=== PATIENT | female | born 1990 | race Caucasian/White ===

== ENCOUNTER 2020-12-18 09:11 | Emergency (ER) | payer OTHER, SELFPAY ==
--- NOTE | 2020-12-18 09:19 | ED.GENADULT ---
HPI - General Adult General Chief complaint: Eye Problems Stated complaint: Swollen Eye Time Seen by Provider: 12/18/20 09:20 Source: patient Mode of arrival: ambulatory Limitations: no limitations History of Present Illness HPI narrative: 30-year-old female patient presents to the [facility] with complaints of left eye pain that started yesterday. Patient states that she woke up yesterday with a little bit of swelling to the left inner canthi of this. Patient states she did have a pimple to the area thought it was just her pimple. Patient states she woke up again this morning with some dry discharge around the inner canthi and does and states that now her upper lid on the left eye is swollen. Denies any vision changes. Denies any itching. Patient denies taking anything for her symptoms. Patient denies wearing contacts or glasses. Patient states she has had some anxiety recently from starting a new job. Related Data Home Medications Medication Instructions Recorded Confirmed hydroxyzine HCl 25 mg PO DAILY 12/18/20 12/18/20 norethindrone (contraceptive) 0.35 mg PO DAILY 12/18/20 12/18/20 Allergies Allergy/AdvReac Type Severity Reaction Status Date / Time No Known Allergies Allergy Unknown Verified 12/18/20 09:13 Review of Systems Review of Systems: Narrative: CONSTITUTIONAL: Denies fever, chills, or sweats. EYES: Denies visual changes, redness, or discharge. Positive left upper lid swelling since yesterday ENT: Denies rhinorrhea, congestion, sore throat, or otalgia. CARDIOVASCULAR: Denies chest pain, palpitations, or edema. RESPIRATORY: Denies cough or dyspnea. GASTROINTESTINAL: Denies abdominal pain, nausea, vomiting, or diarrhea. GENITOURINARY: Denies dysuria or hematuria. SKIN: Denies rash or itching. MUSCULOSKELETAL: Denies back pain, joint pain, or myalgia. NEUROLOGIC: Denies headache, numbness, or weakness. PSYCHIATRIC: Denies anxiety or depression. [facility] Social History Social History Gender identity (if verbalized by the patient): Female Comments At the time of my signature I agree with nursing past medical history, surgical, social, and family history. There is no relevant family history pertinent to the presenting complaint. Exam Narrative: Exam Narrative: GENERAL: Well-appearing, well-nourished, and in no acute distress. HEAD: Normocephalic, atraumatic. EYES: PERRLA and EOM intact without limitation or complaint of pain, no periorbital soft tissue swelling ,no erythema, warmth or tenderness noted, no obvious deformity. Patient has some swelling to the left upper lid along with a notable pimple on the bridge of the nose of the left side with some tenderness noted. No crusting or swelling.no tearing or draining.No photophobia. No nystagmus No FB or lesion on lid eversion. Corneas grossly clear, no obvious FB or hyphens/hypopyon. No injection to sclera. Lids and lashes clear. ENT: Nares clear, no rhinorrhea or epistaxis. Mucous membranes moist. NECK: Supple. No lymphadenopathy CHEST: Clear to auscultation. No respiratory distress. HEART: Regular rate and rhythm. No murmur heard. Normal peripheral pulses. ABDOMEN: Soft, nontender, nondistended, normal active bowel sounds. EXTREMITIES: Normal range of motion. No edema. SKIN: Warm, dry, no rash. NEURO: No focal deficits. Alert and oriented x3. Course Vital Signs Vital signs: Vital Signs Temperature 36.2 C L 12/18/20 09:28 Pulse Rate 91 12/18/20 09:28 Respiratory Rate 18 12/18/20 09:28 Blood Pressure 132/89 12/18/20 09:28 Pulse Oximetry 100 12/18/20 09:28 Temperature 36.2 C L 12/18/20 09:28 Pulse Rate 91 12/18/20 09:28 Respiratory Rate 18 12/18/20 09:28 Blood Pressure 132/89 12/18/20 09:28 Pulse Oximetry 100 12/18/20 09:28 Vital signs reviewed The patient has been informed that they may have pre-hypertension or Hypertension based on a BP reading in the departme
[2020-12-18 09:28] VITALS: BP 132/89; PULSE 91; RESP 18; TEMP 36.2; O2SAT 100
== END 2020-12-18 09:50 | disposition home or self-care (01) ==
PROVIDERS: Emergency Provider Nurse Practitioner Family
DX: H00.024 Hordeolum internum left upper eyelid (principal); F41.9 Anxiety disorder, unspecified
CPT/HCPCS: 99213; A9270; G0463

== ENCOUNTER 2021-10-04 16:36 | Outpatient (CLI) | payer OTHER, SELFPAY ==
--- NOTE | ~2021-10-04 | US_ITS ---
US thyroid INDICATION: Nontoxic goiter TECHNIQUE: Real-time sonographic images of the thyroid gland were obtained. COMPARISON: No prior studies for comparison. FINDINGS: The right thyroid lobe measures 4.2 x 1 x 1 cm. The left thyroid lobe measures 3.4 x 0.9 x 1.9 cm. There is normal echotexture and echogenicity throughout the thyroid gland. No discrete nodul es identified. Normal vascular flow is present. IMPRESSION: 1. Normal thyroid without discrete nodule or abnormal vascularity. Reviewed, dictated and finalized at location A. TEGY ASSOCIATE
== END 2021-10-04 16:37 | disposition home or self-care (01) ==
PROVIDERS: PCP Physician Assistant; Visit Provider Physician Assistant
DX: E04.9 Nontoxic goiter, unspecified (principal)
CPT/HCPCS: 76536

== ENCOUNTER 2024-03-27 18:30 | Inpatient (IN) | payer OTHER, SELFPAY ==
[2024-03-27] VITALS (19 sets, daily range): BP systolic 108–155; BP diastolic 63–102; PULSE 89–103; BMI 35.5
[2024-03-27 19:22] LABS: Basophils Percent Auto 0.1 % (0.2-1.2); Eosinophils Percent Auto 0.5 % (0-4.4); Hematocrit 36.6 % (37.0-47.0); Hemoglobin 12.2 g/dL (12.0-15.0); Immature Granulocyte Absolute 0.02 K/mm3 (0.00-0.031); Immature Granulocyte Percent A 0.3 % (0-0.5); Lymphocytes Absolute Auto 1.68 K/mm3 (0.9-3.2); Lymphocytes Percent Auto 22.1 % (18.3-44.2); Mean Corpuscular HGB Conc 33.3 g/dl (32-36); Mean Corpuscular Hemoglobin 30.9 pg (26-34); Mean Corpuscular Volume 92.7 fl (80-100); Mean Platelet Volume 11.6 fl (7.4-10.4); Monocytes Absolute Auto 0.6 K/mm3 (0.1-0.6); Monocytes Percent Auto 7.5 % (2.6-8.5); Neutrophils Absolute Auto 5.3 K/mm3 (1.3-6.7); Neutrophils Percent Auto 69.5 % (45.5-73.1); Platelet Count Result 247 k/mm3 (150-375); Red Blood Count 3.95 M/mm3 (4.2-5.4); Red Cell Distribution Width 14.9 % (11.5-14.5); White Blood Count 7.6 K/mm3 (4.5-10.0)
[2024-03-27] MEDS: miSOPROStol 25 MCG TABLET 50 MCG (19:29)
--- NOTE | 2024-03-27 19:36 | LDADM ---
This patient, Patricia Zepeda, was admitted to Labor/Delivery/Recovery 108 on 03/27/24 at 18:30. Plans for labor, pain management and were discussed with patient. Patient/family oriented to hospital policies and general routines including ID bracelet, bed and alarms, visiting hours, pain management, procedures, bathroom and other care routines, personal items, smoking policy, room service/diet and guest tray routines, security routines, and visiting hours. Patient/Family are encouraged to report perceived risks to care and to ask questions if they do not understand what they are told or what they should do. See OBIX for further documentation.
[2024-03-27 19:39] LABS: Alanine Aminotransferase 16 U/L (6-35); Albumin Level 3.7 g/dL (3.5-5.1); Alkaline Phosphatase 213 U/L (38-126); Anion Gap 8 mmol/L (4-12); Aspartate Amino Transferase 23 U/L (14-36); Bilirubin,Total 0.5 mg/dL (0.2-1.3); Blood Urea Nitrogen 8 mg/dL (7-17); Calcium 9.4 mg/dL (8.4-10.2); Carbon Dioxide 18 mmol/L (22-30); Chloride 108 mmol/L (98-107); Estimated Glomerular Filt Rate > 60; Glucose 92 mg/dL (65-110); Potassium 3.6 mmol/L (3.4-5.0); Sodium 134 mmol/L (137-145)
--- NOTE | 2024-03-27 20:46 | P.PNAN_ITS ---
Anes - Eval Pre Procedure Procedure: labor epidural Date/Time: 03/27/24 20:46 Pre Op Diagnosis: IOL Patient Data Age: 33 Gender: F Height: 1.63 m Weight: 94 kg Last Vital Signs Pulse 100 03/27/24 20:45 BP 149/83 H 03/27/24 20:45 O2 Del Method Room Air 03/27/24 19:35 Allergies Allergy/AdvReac Type Severity Reaction Status Date / Time No Known Allergies Allergy Unknown Verified 03/05/24 15:33 Home Medications Medication Instructions Recorded Confirmed Type aspirin 81 mg tablet 81 mg PO DAILY 03/05/24 03/05/24 History vits no.126-ferrous fum 1 tablet PO DAILY 03/05/24 03/05/24 History 28 mg iron-folic acid 800 mcg tablet (Classic ) Laboratory Tests 03/27/24 03/27/24 19:11 19:12 WBC 7.6 K/mm3 (4.5-10.0) RBC 3.95 L M/mm3 (4.2-5.4) Hgb 12.2 g/dL (12.0-15.0) Hct 36.6 L % (37.0-47.0) MCV 92.7 fl (80-100) MCH 30.9 pg (26-34) MCHC 33.3 g/dl (32-36) RDW 14.9 H % (11.5-14.5) Plt Count 247 k/mm3 (150-375) MPV 11.6 H fl (7.4-10.4) Immature Gran % (Auto) 0.3 % (0-0.5) Neut % (Auto) 69.5 % (45.5-73.1) Lymph % (Auto) 22.1 % (18.3-44.2) [place] % (Auto) 7.5 % (2.6-8.5) Eos % (Auto) 0.5 % (0-4.4) Baso % (Auto) 0.1 L % (0.2-1.2) Lymph # (Auto) 1.68 K/mm3 (0.9-3.2) [place] # (Auto) 0.6 K/mm3 (0.1-0.6) Eos # (Auto) 0.0 K/mm3 (0-0.3) Baso # (Auto) 0.0 K/mm3 (0.0-0.1) Abs Immat Gran (auto) 0.02 K/mm3 (0.00-0.031) Absolute Neuts (auto) 5.3 K/mm3 (1.3-6.7) Absolute Nucleated RBC 0.000 K/mm3 (0.0-0.012) Nucleated RBC % 0.0 % (0.0-0.2) Sodium 134 L mmol/L (137-145) Potassium 3.6 mmol/L (3.4-5.0) Chloride 108 H mmol/L (98-107) Carbon Dioxide 18 L mmol/L (22-30) Anion Gap 8 mmol/L (4-12) BUN 8 mg/dL (7-17) Creatinine 0.50 L mg/dL (0.7-1.0) Estim Creat Clear Calc Not Reportable Estimated GFR > 60 (59 - ) Glucose 92 mg/dL (65-110) Calcium 9.4 mg/dL (8.4-10.2) Total Bilirubin 0.5 mg/dL (0.2-1.3) AST 23 U/L (14-36) ALT 16 U/L (6-35) Alkaline Phosphatase 213 H U/L (38-126) Total Protein 7.0 g/dL (6.3-8.2) Albumin 3.7 g/dL (3.5-5.1) RPR Pending Blood Type O Positive Antibody Screen Negative Patient hx anesthesia problems: none Family hx anesthesia problems: none Results Review: All pre-operative results and documents have been reviewed as part of the pre- operative evaluation. [facility] Family History Family History Other Unknown family medical history Social History Social History Smoking status: Never smoker Substance use: never Do You Feel Safe in your Home?: Yes Lack of Transportation: No Lack of Food: Never True Current Housing: I Have Housing Concerned About Future Housing: No Difficulty Paying Gas/Electric Bills: No Difficulty Paying for Meds: No Currently Unemployed: No Education: Master's Degree or Higher Difficulty w/ Childcare or Family Care: No Gender identity (if verbalized by the patient): Female Spiritual care concerns: No Exam Day of Procedure 03/27/24 20:46 Patient weight: obese Heart: regular rate and rhythm Lungs: normal air movement Airway: Mallampati scale Neurological: alert and oriented
[2024-03-27 21:31] LABS: Uric Acid 4.5 mg/dL (2.5-7.5)
[2024-03-28] VITALS (355 sets, daily range): BP systolic 81–212; BP diastolic 33–198; PULSE 59–153; TEMP 36.9–38; O2SAT 94–100
[2024-03-28] MEDS: LACTATED RINGERS 1,000 ML 125 ML IV CONT ×4 (01:33→17:35)
[2024-03-28] MEDS: OXYTOCIN 30 UNITS/NS 500 ML 30 UNITS/500 ML BAG IV CONT (01:35)
--- NOTE | 2024-03-28 08:34 | WPDOBADMIT ---
Obstetrics - Admit Note Admission Note: record reviewed. No pertinent additions to the history and/or any subsequent changes in the physical findings that are not consistent with the expected course of the were found. Additions to the history and/or subsequent changes in the physical findings follow. admitted by dr. navarrete for IOL for GABE, LINDA /2,
[2024-03-28] MEDS: LORazepam (*CRX) 1 MG TABLET PO (08:57)
--- NOTE | 2024-03-28 10:07 | PM.OBPNLAB ---
Pain Control Date/time seen: 03/28/24 10:07 Comments: SVE 50/-3 AROM moderate amount of clear, odorless fluid, anticipate vaginal delivery, FHR category 1, IUPC placed
[2024-03-28] MEDS: CALCIUM CARBONATE (TUMS) 500 MG (200 MG ELEMENTAL) PO (16:19)
[2024-03-28 17:11] LABS: Rapid Plasma Reagin Non-Reactive (NonReactive)
[2024-03-28] MEDS: ACETAMINOPHEN 500 MG TABLET 1000 MG PO (17:52)
[2024-03-28] MEDS: AMPICILLIN 2 GM/NS 100 ML 2 GM/100 ML BAG IVPB (19:32)
[2024-03-28] MEDS: ONDANSETRON INJ 4 MG/2 ML VIAL IV PUSH (20:29)
[2024-03-28] MEDS: diphenhydrAMINE HCl INJ 50 MG/ML VIAL 25 MG IV PUSH (22:46)
[2024-03-28] MEDS: AMPICILLIN 1 GM/NS 50 ML 1 GM/50 ML BAG IVPB (23:49)
[2024-03-29] VITALS (157 sets, daily range): BP systolic 46–158; BP diastolic 10–98; PULSE 79–154; RESP 16–18; TEMP 36.6–37.4; O2SAT 84–100
[2024-03-29] MEDS: PHENYLEPHRINE 1,000 MCG/10 ML SYRINGE 100 MCG IV PUSH (01:40)
[2024-03-29] MEDS: LACTATED RINGERS 1,000 ML 125 ML IV CONT (03:15)
[2024-03-29] MEDS: AMPICILLIN 1 GM/NS 50 ML 1 GM/50 ML BAG IVPB (04:00)
--- NOTE | 2024-03-29 07:43 | PM.OBPNLAB ---
Pain Control Date/time seen: 03/29/24 07:43 Comments: delete
--- NOTE | 2024-03-29 08:31 | S_PTH ---
PATIENT: Patricia Zepeda LOC: [facility] U#:[id number] AGE/SX: 33/F ROOM: 292 RE03/27/[address]: Jules Donohue MD : 1990 BED: 00 DIS: 03/31/2024 SPEC #: [id number] RECD: 03/29/24 11:39 STATUS: MIROSLAVA REQ #: [id number] YULISA: 03/29/24 08:[address]: Shala Ricketts DEPT: [facility] Surgical RECD BY: Kim Snyder ENTERED: 03/29/24 11:39 SP TYPE: Surgical OTHR DR: Pamela Rowley, KILO Donohue MD Tissues: A - Placenta Procedures: Hematoxylin and Eosin Stain Gross and Microscopic Level 5
[2024-03-29] MEDS: miSOPROStol 200 MCG TABLET 1000 MCG RECTAL (08:34)
[2024-03-29] MEDS: OXYTOCIN 30 UNITS/NS 500 ML 30 UNITS/500 ML BAG 999 UNITS IV CONT (08:36)
--- NOTE | 2024-03-29 08:41 | P.PCNOB_ITS ---
OB - Vaginal Delivery Note Procedure Delivery date: 03/29/24 Events: Gestational Hypertension Induction method: AROM, Per Misoprostol Protocol and Per Pitocin Protocol Delivery monitor: External FHT and External Uterine Route of delivery: Episiotomy description: None Laceration Description: None and Perineal - 1st Degree Delivery repair: vicryl Specimen: Yes Quantitative Blood Loss (ml): 300 Anesthesia type: Epidural Disposition: Floor Narrative: head delivered OA, unable to restitute, cord x 2 around the neck reduced, right and left arm in front of chest able to reach right arm easily and delivered,then shoulders passed through and the rest of the baby delivered easily. about 1min 20 sec from head to delivery. Tight Barrel Inspector at bs and baby to warmer, baby moving all extremities [place] Baby Date of : 03/29/24 Time of : 08:27 Weeks of gestation at delivery: 39 Infant gender: Female presentation: vertex position: Other (see above note) Placenta delivery description: Spontaneous Cord Vessel Description: 3 Vessels, Nuchal Cord (x2) and Reduced score one minute: 5 score five minutes: 8
[2024-03-29] MEDS: OXYTOCIN 30 UNITS/NS 500 ML 30 UNITS/500 ML BAG 125 UNITS IV CONT (09:10)
[2024-03-29] MEDS: IBUPROFEN 600 MG TABLET PO (09:35)
[2024-03-29] MEDS: ACETAMINOPHEN 325 MG TABLET 650 MG PO (09:35)
[2024-03-29] MEDS: BENZOCAINE 20% AER SPR (*SP) 56 GM CAN 1 SPRAY TOPICAL (09:36)
[2024-03-29] MEDS: LABETALOL HCL 100 MG TABLET 200 MG PO (12:10)
[2024-03-30] VITALS (8 sets, daily range): BP systolic 123–137; BP diastolic 60–91; PULSE 73–98; RESP 16–18; TEMP 36.1–36.8; O2SAT 98–100
[2024-03-30] MEDS: LABETALOL HCL 100 MG TABLET 200 MG PO ×3 (00:30→20:45)
--- NOTE | 2024-03-30 05:23 | PM.OBPNVD ---
OB - PN: Subj Subjective Date/time seen: 03/30/24 05:23 Interval history: pp day 1 doing well desires d/c OB - PN: Obj Data Labs 03/27/24 19:12 03/27/24 19:11 OB - PN A/P Plan day: 1 Plan: routine care and discharge home Time Spent With Patient Time: Total time spent is greater than 50% in coordination of care (as documented) at patient's floor/unit and/or counseling patient: Review of Systems Review of Systems: All systems reviewed & are unremarkable except as noted in HPI and below Exam Const: General: cooperative and healthy appearing Chest: Chest palpation & inspection: normal inspection of the chest Cardio: Rate: regular rate Back/Spine/Pelvis: Back: no CVA tenderness Skin: General skin exam: normal color Extrem: Right lower extremity: normal to inspection Left lower extremity: normal to inspection Psych: Appearance: grossly normal
--- NOTE | 2024-03-30 05:26 | PM.OBDSVD ---
DS: Admitting Diagnosis Discharge Date 03/30/24 Admitting Diagnosis IOL, GHTN DS: Discharge Diagnosis Discharge Diagnosis (1) Vaginal delivery: Code(s): O80 - Encounter for full-term uncomplicated delivery Status: Acute OB - DS: Summary OB Procedures : None OB Procedures Intrapartum: Spontaneous Vag Delivery OB Procedures: : None Peripartum Data Laceration Description: None and Perineal - 1st Degree Episiotomy description: None Time Spent with Patient Time attestation: Total time spent providing and/or coordinating discharge services: DS: Data Data Completed and Pending Pending studies at discharge: Pending at discharge 03/29/24 08:31 Surgical [PTH] Routine Discharge Plan Discharge Attending physician on discharge: Stephen Franco Discharging Clinician: Shala Ricketts Patient Disposition: Home, Self-Care Activity: pelvic rest Diet: regular Patient Instructions: Antibiotic Form Stand Alone Forms: General Discharge Information Follow-up/Referrals: Shala Ricketts, CNM [Certified Nurse Etched Circuit Processor] - 4 Weeks Discharge Medications: New ibuprofen 600 mg Tablet 600 mg PO Q6H PRN (Reason: Cramping) Qty: 30 0RF Continued Classic 28 mg iron- 800 mcg Tablet 1 tablet PO DAILY Discontinued Adult Aspirin 81 mg Tablet 81 mg PO DAILY Date of admission: 03/27/24 18:30 Primary Care Provider: Jose AntonioPamela Admitting Provider: Jules Donohue Attending physician on admission: Jules Donohue Condition: Stable
--- NOTE | 2024-03-30 07:39 | WPDANESPN ---
Anes - Prog Note Post-Op Date/Time: 03/30/24 07:39 Cardiovascular status: normal Respiratory status: normal Airway patency: baseline Mental status: baseline Post-Op hydration status: normal Vital Signs: Last Vital Signs Temp 36.6 C 03/29/24 21:08 Pulse 98 03/30/24 05:56 Resp 18 03/29/24 21:08 BP 126/74 03/30/24 05:56 Pulse Ox 98 03/30/24 05:56 O2 Del Method Room Air 03/29/24 21:08 Pain Score (VAS): 3 I/O: Intake & Output 03/29/24 03/29/24 03/30/24 15:59 23:59 07:59 Intake Total 1600 Output Total 300 1500 1100 Balance 1300 -1500 -1100 Laboratory Tests 03/27/24 19:12 03/27/24 19:11 Post-procedural complaints: none Patient Feedback: Patient satisfied with anesthetic care.
[2024-03-30] MEDS: MULTIVIT/MIN/PREN/FOL AC/IRON TABLET 1 TAB PO (09:23)
[2024-03-30 11:40] LABS: Basophils Percent Auto 0.2 % (0.2-1.2); Eosinophils Absolute Auto 0.1 K/mm3 (0-0.3); Hematocrit 32.7 % (37.0-47.0); Hemoglobin 10.9 g/dL (12.0-15.0); Immature Granulocyte Absolute 0.06 K/mm3 (0.00-0.031); Immature Granulocyte Percent A 0.5 % (0-0.5); Lymphocytes Absolute Auto 1.65 K/mm3 (0.9-3.2); Lymphocytes Percent Auto 13.2 % (18.3-44.2); Mean Corpuscular HGB Conc 33.3 g/dl (32-36); Mean Corpuscular Volume 92.9 fl (80-100); Mean Platelet Volume 10.7 fl (7.4-10.4); Monocytes Absolute Auto 0.7 K/mm3 (0.1-0.6); Monocytes Percent Auto 5.4 % (2.6-8.5); Neutrophils Percent Auto 79.7 % (45.5-73.1); Platelet Count Result 203 k/mm3 (150-375); Red Blood Count 3.52 M/mm3 (4.2-5.4); Red Cell Distribution Width 15.4 % (11.5-14.5); White Blood Count 12.5 K/mm3 (4.5-10.0)
[2024-03-30 11:53] LABS: Alanine Aminotransferase 16 U/L (6-35); Albumin Level 2.9 g/dL (3.5-5.1); Alkaline Phosphatase 140 U/L (38-126); Anion Gap 3 mmol/L (4-12); Aspartate Amino Transferase 26 U/L (14-36); Bilirubin,Total 0.3 mg/dL (0.2-1.3); Blood Urea Nitrogen 7 mg/dL (7-17); Carbon Dioxide 23 mmol/L (22-30); Chloride 111 mmol/L (98-107); Estimated CRCL calculation 150 ml/min; Estimated Glomerular Filt Rate > 60; Glucose 97 mg/dL (65-110); Potassium 3.6 mmol/L (3.4-5.0); Sodium 137 mmol/L (137-145)
[2024-03-30] MEDS: ACETAMINOPHEN 325 MG TABLET 650 MG PO (20:45)
[2024-03-31] VITALS: BP 132/78
[2024-03-31 07:30] VITALS: BP 133/79; PULSE 79; RESP 16; TEMP 36.4; O2SAT 99
--- NOTE | 2024-03-31 07:43 | PM.OBPNVD ---
OB - PN: Subj Subjective Date/time seen: 03/31/24 07:43 Interval history: pp day 2 doing well desires d/c OB - PN: Obj Data Labs 03/30/24 11:36 03/30/24 11:36 Labs: Laboratory Results - last 24 hr 03/30/24 11:36 WBC 12.5 H RBC 3.52 L Hgb 10.9 L Hct 32.7 L MCV 92.9 MCH 31.0 MCHC 33.3 RDW 15.4 H Plt Count 203 MPV 10.7 H Immature Gran % (Auto) 0.5 Neut % (Auto) 79.7 H Lymph % (Auto) 13.2 L [place] % (Auto) 5.4 Eos % (Auto) 1.0 Baso % (Auto) 0.2 Lymph # (Auto) 1.65 [place] # (Auto) 0.7 H Eos # (Auto) 0.1 Baso # (Auto) 0.0 Abs Immat Gran (auto) 0.06 H Absolute Neuts (auto) 10.0 H Absolute Nucleated RBC 0.000 Nucleated RBC % 0.0 Sodium 137 Potassium 3.6 Chloride 111 H Carbon Dioxide 23 Anion Gap 3 L BUN 7 Creatinine 0.50 L Estim Creat Clear Calc 150 Estimated GFR > 60 Glucose 97 Calcium 9.0 Total Bilirubin 0.3 AST 26 ALT 16 Alkaline Phosphatase 140 H Total Protein 6.0 L Albumin 2.9 L OB - PN A/P Plan day: 2 Time Spent With Patient Time: Total time spent is greater than 50% in coordination of care (as documented) at patient's floor/unit and/or counseling patient: Review of Systems Review of Systems: All systems reviewed & are unremarkable except as noted in HPI and below Exam Const: General: cooperative and healthy appearing Resp: Effort & Inspection: normal respiratory effort Cardio: Rate: regular rate Skin: General skin exam: normal color Neuro: General: patient oriented x3
--- NOTE | 2024-03-31 07:45 | P.DS_ITS ---
DS: Admitting Diagnosis Discharge Date 03/31/24 Admitting Diagnosis IOL, GHTN DS: Discharge Diagnosis Discharge Diagnosis (1) Vaginal delivery: Code(s): O80 - Encounter for full-term uncomplicated delivery Status: Acute OB - DS: Summary OB Procedures : None OB Procedures Intrapartum: Spontaneous Vag Delivery OB Procedures: : None Peripartum Data Laceration Description: None and Perineal - 1st Degree Episiotomy description: None Time Spent with Patient Time attestation: Total time spent providing and/or coordinating discharge services: DS: Data Data Completed and Pending Pending studies at discharge: Pending at discharge 03/29/24 08:31 Surgical [PTH] Routine Labs on day of discharge: Labs from last 24 hours 03/30/24 11:36 WBC 12.5 H RBC 3.52 L Hgb 10.9 L Hct 32.7 L MCV 92.9 MCH 31.0 MCHC 33.3 RDW 15.4 H Plt Count 203 MPV 10.7 H Immature Gran % (Auto) 0.5 Neut % (Auto) 79.7 H Lymph % (Auto) 13.2 L [place] % (Auto) 5.4 Eos % (Auto) 1.0 Baso % (Auto) 0.2 Lymph # (Auto) 1.65 [place] # (Auto) 0.7 H Eos # (Auto) 0.1 Baso # (Auto) 0.0 Abs Immat Gran (auto) 0.06 H Absolute Neuts (auto) 10.0 H Absolute Nucleated RBC 0.000 Nucleated RBC % 0.0 Sodium 137 Potassium 3.6 Chloride 111 H Carbon Dioxide 23 Anion Gap 3 L BUN 7 Creatinine 0.50 L Estim Creat Clear Calc 150 Estimated GFR > 60 Glucose 97 Calcium 9.0 Total Bilirubin 0.3 AST 26 ALT 16 Alkaline Phosphatase 140 H Total Protein 6.0 L Albumin 2.9 L Discharge Plan Discharge Attending physician on discharge: Stephen Franco Discharging Clinician: Shala Ricketts Patient Disposition: Home, Self-Care Activity: pelvic rest Diet: regular Patient Instructions: Antibiotic Form Stand Alone Forms: General Discharge Information Follow-up/Referrals: Shala Ricketts, CNM [Certified Nurse Material Control Clerk] - 1 Week (1 week bp check 4 week ) Discharge Medications: New ibuprofen 600 mg Tablet 600 mg PO Q6H PRN (Reason: Cramping) Qty: 30 0RF labetalol 100 mg Tablet 200 mg PO Q12HR Qty: 60 0RF Continued Classic 28 mg iron- 800 mcg Tablet 1 tablet PO DAILY Discontinued Adult Aspirin 81 mg Tablet 81 mg PO DAILY Date of admission: 03/27/24 18:30 Primary Care Provider: HalleyPamela Admitting Provider: Jules Donohue Attending physician on admission: Jules Donohue Condition: Stable
[2024-03-31 08:11] VITALS: PULSE 79
[2024-03-31] MEDS: LABETALOL HCL 100 MG TABLET 200 MG PO (08:11)
[2024-03-31] MEDS: MULTIVIT/MIN/PREN/FOL AC/IRON TABLET 1 TAB PO (08:11)
[2024-03-31] MEDS: IBUPROFEN 600 MG TABLET PO (08:11)
[2024-03-31 12:00] VITALS: BP 138/79; PULSE 88; RESP 16; O2SAT 99
[2024-04-01 12:07] VITALS: BP 123/89; PULSE 76; RESP 20; TEMP 36.4; O2SAT 99
== END 2024-03-31 17:34 | disposition home or self-care (01) | DRG 560 ==
LOC: ANHLDR 03-28 11:33 → ANHOB2 03-29 12:38
PROVIDERS: Advanced Practice Midwife; Admitting Provider Obstetrics & Gynecology; PCP Physician Assistant; Visit Provider Obstetrics & Gynecology
DX: O13.4 Gestational [pregnancy-induced] hypertension without significant proteinuria, complicating childbirth (principal); O70.0 First degree perineal laceration during delivery; O69.1XX0 Labor and delivery complicated by cord around neck, with compression, not applicable or unspecified; Z3A.39 39 weeks gestation of pregnancy; Z37.0 Single live birth; O42.92 Full-term premature rupture of membranes, unspecified as to length of time between rupture and onset of labor
CPT/HCPCS: 36415; 80053; 84550; 85025; 86592; 86850; 86900; 86901; 88307; A9270; J0290; J1200; J2371; J2405; J2590; J2795; J7120

== ENCOUNTER 2024-06-26 13:31 | Emergency (ER) | payer OTHER, SELFPAY ==
--- NOTE | ~2024-06-26 | CT_ITS ---
CT abdomen pelvis wo con Ordering provider: Aamir Amato MD History: 33 years Female with . L flank pain and urinary symptoms. . Comparison: None. Technique: CT abdomen and pelvis with IV and without oral contrast. Automated exposure control and it erative reconstruction technique were employed. The dose-length product was 470.60 mGy-cm. Findings: VISUALIZED LOWER CHEST: Normal. UPPER ABDOMINAL ORGANS: Liver: Normal. Gallbladder: Normal. Spleen: Normal. Stomach/duodenum: Normal. Pancreas: Normal. Adrenals: Normal. Kidneys: Right kidney mid pole stone measuring 3 mm.Stone in the left ureterovesical junction measur ing 4 mm. Left hydroureter and hydronephrosis. PELVIC ORGANS: The bladder is normal. Uterus: Normal. BOWEL AND MESENTERY: Colon: No evidence of diverticulitis. . The material is loaded in the colon. Normal appendix. Small Bowel: Normal. No obstruction. Peritoneum/mesentery: No free air or free fluid. No mesenteric lymphadenopathy. RETROPERITONEUM: Normal aorta. No retroperitoneal lymphadenopathy. MUSCULOSKELETAL: Superficial soft tissues: The superficial soft tissues are normal. Bones: Normal spine. IMPRESSION: 1. Stone in the left ureterovesical junction with left hydroureter and hydronephrosis. 2. Stone in the right kidney midpole. 3. Constipation. Reviewed, dictated and finalized at location A. IMPRESSION: 1. Stone in the left ureterovesical junction with left hydroureter and hydrone phrosis. 2. Stone in the right kidney midpole. 3. Constipation.
[2024-06-26 13:35] VITALS: BP 121/74; PULSE 73; RESP 18; TEMP 36.2; O2SAT 99
[2024-06-26 14:52] LABS: Add Urine Microscopic? NO; Appearance Urine Clear (Clear); Bacteria Urine None Seen /hpf; Bilirubin Urine Negative (Negative); Blood Urine Non-Hemolyzed Trace (Negative); Color Urine Yellow (Yellow); Glucose Urine UA Negative (Negative); Ketones Urine Negative (Negative); Leukocyte Esterase Ur Negative LEU/UL (Negative); Nitrate Urine Negative (Negative); Non Pathogenic Casts 0-2; Protein Urine Negative (Negative); Specific Grav Ur 1.022 (1.001-1.035); Squamous Epithelial Cell Urine Occasional /hpf (Few); WBC Urine 0-5 /hpf (0-3); pH Urine 7.5 (5.0-9.0)
[2024-06-26 15:09] LABS: Basophils Percent Auto 0.4 % (0.2-1.2); Eosinophils Percent Auto 0.2 % (0-4.4); Hematocrit 42.4 % (37.0-47.0); Hemoglobin 14.3 g/dL (12.0-15.0); Immature Granulocyte Absolute 0.03 K/mm3 (0.00-0.031); Immature Granulocyte Percent A 0.3 % (0-0.5); Lymphocytes Absolute Auto 1.99 K/mm3 (0.9-3.2); Lymphocytes Percent Auto 20.5 % (18.3-44.2); Mean Corpuscular HGB Conc 33.7 g/dl (32-36); Mean Corpuscular Hemoglobin 30.5 pg (26-34); Mean Corpuscular Volume 90.4 fl (80-100); Mean Platelet Volume 10.9 fl (7.4-10.4); Monocytes Absolute Auto 0.4 K/mm3 (0.1-0.6); Monocytes Percent Auto 4.4 % (2.6-8.5); Neutrophils Absolute Auto 7.2 K/mm3 (1.3-6.7); Neutrophils Percent Auto 74.2 % (45.5-73.1); Platelet Count Result 268 k/mm3 (150-375); Red Blood Count 4.69 M/mm3 (4.2-5.4); Red Cell Distribution Width 14.2 % (11.5-14.5); White Blood Count 9.7 K/mm3 (4.5-10.0)
[2024-06-26 16:06] LABS: Pregnancy On Board Control Positive; Urine Pregnancy Test Negative
[2024-06-26 16:45] VITALS: BP 122/77; PULSE 59; RESP 18; O2SAT 99
--- NOTE | 2024-06-26 17:17 | ED.GENADULT ---
HPI - General Adult General Chief complaint: Urogenital-Female Stated complaint: lower left sided back pain, UTI? Time Seen by Provider: 06/26/24 13:52 History of Present Illness HPI narrative: This is a 33-year-old female presenting ED with a chief complaint of left-sided flank pain and hematuria. 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 However since then she has continued to have left-sided pain that radiates into the lower left abdomen. She denies fevers but has had some subjective chills. Nausea but no vomiting. No dysuria urgency or frequency. Patient has some vaginal pressure. Patient has a 3-month-old is currently . Related Data Home Medications Medication Instructions Recorded Confirmed vits no.126-ferrous fum 1 tablet PO DAILY 03/05/24 03/05/24 28 mg iron-folic acid 800 mcg tablet (Classic ) Allergies Allergy/AdvReac Type Severity Reaction Status Date / Time No Known Allergies Allergy Unknown Verified 06/26/24 13:39 [facility] Family History Family History Other Unknown family medical history Social History Social History Smoking status: Never smoker Substance use: never Do You Feel Safe in your Home?: Yes Lack of Transportation: No Lack of Food: Never True Current Housing: I Have Housing Concerned About Future Housing: No Difficulty Paying Gas/Electric Bills: No Difficulty Paying for Meds: No Currently Unemployed: No Education: Master's Degree or Higher Difficulty w/ Childcare or Family Care: No Gender identity (if verbalized by the patient): Female Spiritual care concerns: No Exam Narrative: APPEARANCE: No apparent distress. Head: atraumatic. EYES: EOMI, NOSE: Atraumatic NECK: Trachea midline RESPIRATORY: No increased rate of breathing clear to auscultation CARDIOVASCULAR: RRR, ABDOMINAL: Mild suprapubic tenderness, no CVA tenderness, no guarding rebound MUSCULOSKELETAl: No obvious deformities NEURO: Alert. Moving 4/4 extremities SKIN:: Warm, dry. Normal color PSYCHIATRIC: Normal affect Course Vital Signs Vital signs: Vital Signs Temperature 97.2 F L 06/26/24 13:35 Pulse Rate 73 06/26/24 13:35 Respiratory Rate 18 06/26/24 13:35 Blood Pressure 121/74 06/26/24 13:35 Pulse Oximetry 99 06/26/24 13:35 Oxygen Delivery Room Air 06/26/24 13:35 Temperature 97.2 F L 06/26/24 13:35 Pulse Rate 59 L 06/26/24 16:45 Respiratory Rate 18 06/26/24 16:45 Blood Pressure 122/77 06/26/24 16:45 Pulse Oximetry 99 06/26/24 16:45 Oxygen Delivery Room Air 06/26/24 13:35 Medical Decision Making MDM Narrative Medical decision making narrative: -Course: 33-year-old female presenting with left-sided flank pain. Urine was not indicative infection. CT showed a 4 mm stone at the left UVJ. Patient's pain is well controlled. No fevers or white count. Patient be discharged with pain medications safe for . No studies on safety of Flomax in breast-feeding but urology studies show no benefit in stones less than 5 mm so it will be held. She will be given urology follow-up and return precautions. -DDX includes but is not limited to: UTI/pyelo/kidney stone/muscle strain -Co-morbidities complicating care: Breast-feeding -Independent interpretation of studies: Labs reviewed. Urine with 6-10 red blood cells and 0-[address] showed a 4 mm stone in left UVJ. -Interventions: Toradol -Shared decision making / Disposition: Discharge -RX Motrin Tylenol Zofran Vital Signs Vital Signs: Vital Signs Temperature 97.2 F L 06/26/24 13:35 Pulse Rate 73 06/26/24 13:35 Respiratory Rate 18 06/26/24 13:35 Blood Pressure 121/74 06/26/24 13:35 Pulse Oximetry 99 06/26/24 13:35 Oxygen Delivery Room Air 06/13
[2024-06-26 18:26] LABS: Alanine Aminotransferase 88 U/L (6-35); Albumin Level 4.9 g/dL (3.5-5.1); Alkaline Phosphatase 139 U/L (38-126); Anion Gap 12 mmol/L (4-12); Aspartate Amino Transferase 50 U/L (14-36); Bilirubin,Total 0.6 mg/dL (0.2-1.3); Blood Urea Nitrogen 13 mg/dL (7-17); Calcium 9.8 mg/dL (8.4-10.2); Carbon Dioxide 26 mmol/L (22-30); Chloride 100 mmol/L (98-107); Estimated CRCL calculation 102 ml/min; Estimated Glomerular Filt Rate > 60; Glucose 89 mg/dL (65-110); Sodium 138 mmol/L (137-145)
== END 2024-06-26 17:56 | disposition home or self-care (01) ==
PROVIDERS: Emergency Provider Emergency Medicine; PCP Physician Assistant
DX: N20.0 Calculus of kidney (principal)
CPT/HCPCS: 36415; 74176; 80053; 81003; 81025; 85025; 99284